=== PATIENT | female | born 1990 | race Caucasian/White ===

== ENCOUNTER 2016-12-12 02:47 | Emergency (ER) | payer OTHER ==
[~2016-12-12 02:47] MED LIST: AMOXICILLIN PO; AMOXICILLIN500 M1 PO; BENZONATATE PO; CIPRODEX OTIC7.5 ML OT; DEXAMETHASONE4 MG PO; DICLOFENAC PO; IBUPROFEN800 MG PO; MACROBID100 MG PO; NO MEDICATIONS; PRENATAL VITAMI1 TA3 PO; ROBITUSSIN A-C-S1 ML PO; ZANAFLEX PO; ZITHROMAX PO
[2016-12-12 03:35] LABS: URINE SOURCE CLEAN CATCH
[2016-12-12 03:39] LABS: BASOPHIL# 0.1 X10e3 (0-0.3); BASOPHIL% 1.1 % (0-2.5); EOSINOPHIL# 0.3 X10e3 (0-0.7); HEMATOCRIT 42.8 % (35.0-45.0); HEMOGLOBIN 14.7 gm/dL (12.0-16.0); LYMPHOCYTE# 3.7 X10e3 (1.0-3.5); LYMPHOCYTE% 28.3 % (17.0-45.0); MEAN CELL VOLUME 91.4 FL (83-96); MEAN CORPUSCULAR HEMOGLOBIN 31.3 PG (28-34); MEAN CORPUSCULAR HGB CONC 34.3 g/dL (30-36); MEAN PLATELET VOLUME 8.1 FL (6.5-11.5); MONOCYTE# 1.1 X10e3 (0-1.0); MONOCYTE% 8.3 % (3.0-12.0); NEUTROPHIL# 7.9 X10e3 (1.5-7.1); NEUTROPHIL% 60.3 % (40-75); PLATELET COUNT 380 X10e3 (140-420); RED BLOOD COUNT 4.69 X10e (3.90-5.30); RED CELL DISTRIBUTION WIDTH 13.2 % (11.0-15.5); WHITE BLOOD COUNT 13.2 X10e3 (4.0-10.5)
[2016-12-12 03:40] LABS: DIFF IND NO
[2016-12-12 03:44] LABS: URINE APPEARANCE CLEAR; URINE BLOOD NEG (NEG); URINE COLOR YELLOW; URINE GLUCOSE NEG (NORM); URINE KETONE TRACE (NEG); URINE LEUKOCYTE ESTERASE NEG (NEG); URINE NITRATE NEG (NEG); URINE SPECIFIC GRAVITY 1.025 (1.003-1.035)
[2016-12-12 03:45] LABS: URINE PROTEIN NEG (NEG)
[2016-12-12 03:46] LABS: MICRO INDICATED? NO; URINE BILIRUBIN NEG (NEG)
[2016-12-12 03:47] LABS: AMPHETAMINE POS (NEG); BARBITURATES NEG (NEG); BENZODIAZEPINES NEG (NEG); COCAINE NEG (NEG); MARIJUANA NEG (NEG); OPIATES NEG (NEG); TRICYCLIC ANTIDEPRESSANTS NEG (NEG); U METHADONE NEG (NEG)
[2016-12-12 03:55] LABS: ALBUMIN SERUM 4.3 g/dL (3.5-5.0); BILIRUBIN, DIRECT 0.1 mg/dL (0.0-0.2); BILIRUBIN,INDIRECT 0.7 mg/dL (0.0-0.9); BILIRUBIN,TOTAL 0.8 mg/dL (0.2-2.0); BUN/CREATININE RATIO 14.28; CALCIUM SERUM 9.4 mg/dL (8.4-10.2); CREATININE SERUM 0.7 mg/dL (0.6-1.4); GLOM FILT RATE Estimated 119.6 mL/min (>60); POTASSIUM 4.2 mmol/L (3.5-5.1); PROTEIN TOTAL SERUM 7.2 g/dL (6.0-8.3)
== END 2016-12-12 05:37 | disposition home or self-care (01) ==
LOC: SED 02:47
PROVIDERS: Emergency Medicine
DX: T74.21XA Adult sexual abuse, confirmed, initial encounter (principal); F15.10 Other stimulant abuse, uncomplicated; R10.2 Pelvic and perineal pain
CPT/HCPCS: 36415; 80048; 80076; 80307; 81003; 84702; 85025; 99283

== ENCOUNTER 2017-01-11 00:18 | Emergency (ER) | payer OTHER ==
[2017-01-11 01:58] LABS: URINE SOURCE CLEAN CATCH
[2017-01-11 02:02] LABS: URINE APPEARANCE CLEAR; URINE BILIRUBIN NEG (NEG); URINE BLOOD NEG (NEG); URINE COLOR YELLOW; URINE GLUCOSE NEG (NEG); URINE KETONE NEG (NEG); URINE LEUKOCYTE ESTERASE NEG (NEG); URINE NITRATE NEG (NEG); URINE PROTEIN NEG (NEG); URINE SPECIFIC GRAVITY 1.007 (1.003-1.035); URINE UROBILINOGEN 0.2 MG/DL (NEG)
[2017-01-11 02:10] LABS: CULTURE INDICATED? NO
[2017-01-11 02:40] LABS: BASOPHIL# 0.1 X10e3 (0-0.3); BASOPHIL% 0.5 % (0-2.5); EOSINOPHIL# 0.2 X10e3 (0-0.7); EOSINOPHIL% 1.4 % (0.0-7.0); HEMATOCRIT 42.1 % (35.0-45.0); HEMOGLOBIN 14.1 gm/dL (12.0-16.0); LYMPHOCYTE# 2.6 X10e3 (1.0-3.5); LYMPHOCYTE% 17.3 % (17.0-45.0); MEAN CELL VOLUME 91.8 FL (83-96); MEAN CORPUSCULAR HEMOGLOBIN 30.7 PG (28-34); MEAN CORPUSCULAR HGB CONC 33.4 g/dL (30-36); MEAN PLATELET VOLUME 8.5 FL (6.5-11.5); MONOCYTE# 1.2 X10e3 (0-1.0); MONOCYTE% 7.7 % (3.0-12.0); NEUTROPHIL# 11.1 X10e3 (1.5-7.1); NEUTROPHIL% 73.1 % (40-75); PLATELET COUNT 355 X10e3 (140-420); RED BLOOD COUNT 4.59 X10e (3.90-5.30); RED CELL DISTRIBUTION WIDTH 13.3 % (11.0-15.5); WHITE BLOOD COUNT 15.2 X10e3 (4.0-10.5)
[2017-01-11 02:41] LABS: DIFF IND YES
[2017-01-11 02:57] LABS: CALCIUM SERUM 9.1 mg/dL (8.4-10.2); CREATININE SERUM 0.4 mg/dL (0.6-1.4); GLOM FILT RATE Estimated 143.8 mL/min (>60); POTASSIUM 3.6 mmol/L (3.5-5.1)
[2017-01-11 03:03] LABS: ANISOCYTOSIS SL; PLATELET ESTIMATE NORMAL (NORMAL)
[2017-01-13 23:39] LABS: CHLAMYDIA TRACH Not Detected (Not Detected); N GONOR Not Detected (Not Detected)
== END 2017-01-11 04:28 | disposition home or self-care (01) ==
LOC: CED 00:18
PROVIDERS: Nurse Practitioner
DX: O99.89 Other specified diseases and conditions complicating pregnancy, childbirth and the puerperium (principal); R10.2 Pelvic and perineal pain; O99.331 Smoking (tobacco) complicating pregnancy, first trimester; F17.210 Nicotine dependence, cigarettes, uncomplicated
CPT/HCPCS: 36415; 80048; 81003; 84702; 84703; 85025; 86900; 86901; 87491; 87591; 87808; 87905; 96360; 99284

== ENCOUNTER 2017-02-26 18:08 | Emergency (ER) | payer OTHER ==
[2017-02-26] MEDS ORDERED: PRENATAL TABLE1 EAC1 (18:09)
[2017-02-26 19:03] LABS: URINE SOURCE CLEAN CATCH
[2017-02-26 19:05] LABS: URINE APPEARANCE CLEAR; URINE BILIRUBIN NEG (NEG); URINE BLOOD NEG (NEG); URINE COLOR YELLOW; URINE GLUCOSE NEG (NORM); URINE KETONE NEG (NEG); URINE LEUKOCYTE ESTERASE TRACE (NEG); URINE NITRATE NEG (NEG); URINE PH 7.5 (5-8); URINE PROTEIN NEG (NEG); URINE UROBILINOGEN 0.2 MG/DL (NORM)
[2017-02-26 19:07] LABS: MICRO INDICATED? YES
[2017-02-26 19:13] LABS: CULTURE INDICATED? NO; URINE BACTERIA NEG (NEG); URINE RBC 0-2 /[HPF] (0-2); URINE SQUAMOUS EPITHELIAL CELL OCCAS /[HPF]
== END 2017-02-26 19:41 | disposition home or self-care (01) ==
LOC: SED 18:08
PROVIDERS: Emergency Medicine
DX: O99.89 Other specified diseases and conditions complicating pregnancy, childbirth and the puerperium (principal); O99.332 Smoking (tobacco) complicating pregnancy, second trimester; R10.2 Pelvic and perineal pain; F17.200 Nicotine dependence, unspecified, uncomplicated; Z3A.15 15 weeks gestation of pregnancy
CPT/HCPCS: 36415; 81003; 84702; 99284